=== PATIENT | female | born 1945 | race Caucasian/White ===

== ENCOUNTER → 2016-06-15 | Outpatient (CLI) | payer OTHER ==
--- NOTE | 2016-06-15 15:37 | DX ---
Right Shoulder, Three Views June 15, 2016, 1455 Hours Clinical Indication: Evaluate for arthritis. Comparison: None relevant. Findings: Surgical clips are noted in the axilla. There is narrowing of the space between the humeral head and the acromion. Bony osteophytes are seen around the humeral head, and arthritic changes of t he glenoid are noted. Mild arthritic changes are present at the acromioclavicular joint. The adjacent ribs are unremarkable. Impressions 1. Moderate osteoarthritic changes of the glenohumeral joint and narrowing of the space between the h umeral head and the acromioclavicular joint can be seen with rotator cuff injury. 2. Prior lymphadenectomy of the right axilla.
== END ==
LOC: BMCIMAGING 14:58
PROVIDERS: ATTEND Internal Medicine Rheumatology
DX: M19.011 Primary osteoarthritis, right shoulder (principal)

== ENCOUNTER → 2017-04-03 | Outpatient (CLI) | payer OTHER | LOC: FIMAGING 12:55 | PROVIDERS: ATTEND Internal Medicine Hematology & Oncology | DX: Z13.820 Encounter for screening for osteoporosis (principal); M85.80 Other specified disorders of bone density and structure, unspecified site; Z78.0 Asymptomatic menopausal state; Z85.3 Personal history of malignant neoplasm of breast ==

== ENCOUNTER → 2017-04-17 | Outpatient (CLI) | payer OTHER, BC ==
[~2017-04-17] MED LIST: GADOBUTROL 10 ML VIAL IVP ONE
== END ==
LOC: FIMAGING 12:15
PROVIDERS: ATTEND Internal Medicine
DX: R90.89 Other abnormal findings on diagnostic imaging of central nervous system (principal); G62.9 Polyneuropathy, unspecified
CPT/HCPCS: 70553; A9585

== ENCOUNTER → 2017-12-19 | Outpatient (CLI) | payer OTHER | LOC: FIMAGING 16:46 | PROVIDERS: ATTEND Surgery | DX: R52 Pain, unspecified (principal); I77.89 Other specified disorders of arteries and arterioles; R91.1 Solitary pulmonary nodule; Z85.3 Personal history of malignant neoplasm of breast ==

== ENCOUNTER → 2018-04-08 | Outpatient (CLI) | payer OTHER | LOC: FIMAGING 10:02 | PROVIDERS: ATTEND Internal Medicine Hematology & Oncology | DX: Z13.820 Encounter for screening for osteoporosis (principal); M85.89 Other specified disorders of bone density and structure, multiple sites; Z78.0 Asymptomatic menopausal state ==

== ENCOUNTER → 2018-04-25 | Outpatient (CLI) | payer OTHER | LOC: FIMAGING 14:18 | PROVIDERS: ATTEND Physician Assistant | DX: R91.1 Solitary pulmonary nodule (principal); Z85.3 Personal history of malignant neoplasm of breast ==